=== PATIENT | female | born 1935 | race Caucasian/White ===

== ENCOUNTER 2024-08-04 07:04 | Emergency (ER) | payer MEDICARE, SELFPAY ==
[2024-08-04] VITALS (18 sets, daily range): BP systolic 119–181; BP diastolic 62–72; PULSE 72–93; RESP 12–21; TEMP 36.5; O2SAT 98–100
--- NOTE | ~2024-08-04 | CT_ITS ---
EXAMINATION: CT soft tissue neck w con DATE: 08/04/2024 08:39 INDICATION: Neck mass. TECHNIQUE: Computed tomography (CT) of the neck was performed with 75 mL Omnipaque-350 intravenous co ntrast. Automated exposure control and iterative reconstruction technique were employed. The dose-nubia gth product was 260.11 mGy-cm. COMPARISON: None FINDINGS: There is mild scarring at the lung apices. There is a 3.9 x 3.5 x 4.0 cm mass involving rig ht submandibular gland extending to the skin with eccentric calcifications. There are no pathological ly enlarged lymph nodes. The paranasal sinuses are clear. The mastoid air cells are normal. The orbit s are normal. There is moderate cervical spondylosis. There are benign bone islands in C6 and C7. IMPRESSION: 1. 4.0 cm mass of right submandibular gland extending to the skin. The differential diagnosis include s primary malignancy, benign mixed tumor, and Warthin tumor. Reviewed, dictated and finalized at location [] [employer] MANAGER IMPRESSION: 1. 4.0 cm mass of right submandibular gland extending to the skin. The differen tial diagnosis includes primary malignancy, benign mixed tumor, and Warthin rosalie or.
--- NOTE | 2024-08-04 07:45 | ED.WOUNDLAC ---
HPI - Wound/Laceration General Chief Complaint: Wound/Laceration Stated Complaint: facial bleeding Time Seen by Provider: 08/04/24 07:39 Source: patient, family, EMS and RN notes reviewed Mode of arrival: EMS Limitations: no limitations History of Present Illness HPI narrative: 88-year-old female presents with bleeding from a growth on her chin/neck that she started to notice on June 21. She states it started about the size of her thumb and has continued to grow. she states it is not painful. She notes that it would occasionally bleed before but this morning she woke up and it was bleeding. no known trauma or injury although she states was possible she struck it on something while she was asleep. No fevers or chills. She denies any difficulty breathing. No other mucosal bleeding. Patient denies any medical problems and is not on any medications including no anticoagulation. Related Data Allergies Allergy/AdvReac Type Severity Reaction Status Date / Time No Known Allergies Allergy Verified 08/04/24 07:57 [facility] Past Medical History Medical History (Updated 08/04/24 @ 09:01 by Henny Orona MD) No significant medical problems Social History Social History (Updated 08/04/24 @ 07:57 by Henny Orona MD) Social History: Has at least 2 sons Living arrangements: [facility] Additional living arrangements comments: [facility] Exam Narrative: GENERAL: Well-appearing, well-nourished, and in no acute distress. HEAD: Normocephalic, atraumatic. ENT: Nares clear, no rhinorrhea or epistaxis. NECK: Supple. No carotid bruit. 4 cm x 3 x2 cm lesion located on right neck just inferior to the mandible. it does have a 1 cm x 2 cm ulcerated friable area on the top. there does appear to be angiogenesis/vascularity throughout the mass which is otherwise firm and immobile. CHEST: Speaking in full sentences. No respiratory distress. Lungs clear to auscultation bilaterally without wheezes, crackles, or stridor. HEART: Regular rate and rhythm. . ABDOMEN: Soft, nondistended. EXTREMITIES: Normal range of motion. No lower extremity edema. SKIN: Warm, dry, no rash. NEURO: No focal deficits. Alert and oriented x3. PSYCH: Normal mood and affect. Course Vital Signs Vital signs: Vital Signs Temperature 97.7 F 08/04/24 07:06 Pulse Rate 91 08/04/24 07:06 Respiratory Rate 14 08/04/24 07:06 Blood Pressure 178/67 H 08/04/24 07:06 Pulse Oximetry 100 08/04/24 07:06 Oxygen Delivery Room Air 08/04/24 07:06 Temperature 97.7 F 08/04/24 07:06 Pulse Rate 80 08/04/24 09:45 Respiratory Rate 20 08/04/24 09:45 Blood Pressure 158/70 H 08/04/24 09:02 Pulse Oximetry 99 08/04/24 09:45 Oxygen Delivery Room Air 08/04/24 07:06 MDM - Wound/Laceration MDM Narrative Medical decision making narrative: patient presents with bleeding from a mass that she is noticed on the right side of neck this been growing for the past 6 weeks. In the emergency department she is afebrile with vital signs notable for hypertension. patient states that is not painful. Labs obtained. CT imaging as below. Discussed with clinical technologist Dr. Lopez. he did indicate that he could see this in clinic outpatient and facilitate patient getting a biopsy and/or being referred to [facility] or patient could elect to present there directly. Patient otherwise remains stable. She and her sons are advised on the recommendations/next steps and verify understanding. I did use 1 silver nitrate stick to cauterize some of the surface bleeding although it had been generally well controlled. Dressed with RN with bandage and tegaderm dressing. Differential Diagnosis Differential diagnosis: Likely abscess (considered) and other (tumor - benign or malignant) Lab Data Attestation: I reviewed the patient's lab results. Lab results narrative: Microcytic anemia, thrombocytosis. No leukocytosis. 08/04/24 08:05 08/04/24 08:05 Labs: Lab Results 08/04/24 Range/Units 08:05 WBC 8.2 (4.5-10.0) K/mm3 RBC 4.08 L (4.2-5.4) M/mm3 Hgb 8.3 L (12.0-15.0) g/dL Hct 29.4 L (37.0-47.0) % MCV 72.1 L (80-100) fl MCH 20.3 L (26-34) pg MCHC 28.2 L (32-36) g/dl RDW 17.2 H (11.5-14.5) % Plt Count 453 H (150-375) k/mm3 MPV 9.8 (7.4-10.4) fl Immature Gran % (Auto) 0.1 (0-0.5) % Neut % (Auto) 56.2 (45.5-73.1) % Lymph % (Auto) 29.4 (18.3-44.2) % [place] % (Auto) 11.2 H (2.6-8.5) % Eos % (Auto) 2.4 (0-4.4) % Baso % (Auto) 0.7 (0.2-1.2) % Lymph # (Auto) 2.41 (0.9-3.2) K/mm3 [place] # (Auto) 0.9 H (0.1-0.6) K/mm3 Eos # (Auto) 0.2 (0-0.3) K/mm3 Baso # (Auto) 0.1 (0.0-0.1) K/mm3 Abs Immat Gran (auto) 0.01 (0.00-0.031) K/mm3 Absolute Neuts (auto) 4.6 (1.3-6.7) K/mm3 Absolute Nucleated RBC 0.000 (0.0-0.012) K/mm3 Nucleated RBC % 0.0 (0.0-0.2) % Platelet Estimate Increased (Adequate) Hypochromasia 2+ Tear Drop Cells 1+ Ovalocytes 1+ Schistocytes None seen PT 14.1 (11.1-14.7) Seconds INR 1.1 APTT 27.5 (22.3-36.8) Seconds Sodium 140 (137-145) mmol/L Potassium 3.8 (3.4-5.0) mmol/L Chloride 107 (98-107) mmol/L Carbon Dioxide 25 (22-30) mmol/L Anion Gap 8 (4-12) mmol/L BUN 16 (7-17) mg/dL Creatinine 0.90 (0.7-1.0) mg/dL Estim Creat Clear Calc 27 ml/min Estimated GFR 59 (59 - ) Glucose 90 (65-110) mg/dL Calcium 9.0 (8.4-10.2) mg/dL Total Bilirubin 0.5 (0.2-1.3) mg/dL AST 25 (14-36) U/L ALT 12 (6-35) U/L Alkaline Phosphatase 84 (38-126) U/L Total Protein 7.0 (6.3-8.2) g/dL Albumin 4.0 (3.5-5.1) g/dL Imaging Data Radiologist's impression: Impressions Soft Tissue Neck CT 08/04/24 08:40 IMPRESSION: 1. 4.0 cm mass of right submandibular gland extending to the skin. The differential diagnosis includes primary malignancy, benign mixed tumor, and Warthin tumor. Discharge Plan Discharge Clinical Impression: Mass of right submandibular gland, Microcytic anemia, Thrombocytosis Patient Disposition: NH Half-Way/Asst Living Condition: Stable Instructions: Antibiotic Form, Anemia (ED), Needle Biopsy (DC), Soft Tissue Mass (ED) Additional Instructions: You can follow-up with the ENT/ clinical technologist listed below for additional management and possible biopsy or you can see your primary care physician to see about getting a referral to [facility] given the possibility of malignancy. Keep the area clean warm and dry. return to the emergency department with any new or worsening symptoms. Follow-up/Referrals: Deepak Lopez MD [Physician] - ( Ear, nose, throat) Yony Saldivar MD [Primary Care Provider] - Time of Disposition: 09:43
[2024-08-04 08:14] LABS: Basophils Absolute Auto 0.1 K/mm3 (0.0-0.1); Basophils Percent Auto 0.7 % (0.2-1.2); Eosinophils Absolute Auto 0.2 K/mm3 (0-0.3); Eosinophils Percent Auto 2.4 % (0-4.4); Hematocrit 29.4 % (37.0-47.0); Hemoglobin 8.3 g/dL (12.0-15.0); Immature Granulocyte Absolute 0.01 K/mm3 (0.00-0.031); Immature Granulocyte Percent A 0.1 % (0-0.5); Lymphocytes Absolute Auto 2.41 K/mm3 (0.9-3.2); Lymphocytes Percent Auto 29.4 % (18.3-44.2); Mean Corpuscular HGB Conc 28.2 g/dl (32-36); Mean Corpuscular Hemoglobin 20.3 pg (26-34); Mean Corpuscular Volume 72.1 fl (80-100); Mean Platelet Volume 9.8 fl (7.4-10.4); Monocytes Absolute Auto 0.9 K/mm3 (0.1-0.6); Monocytes Percent Auto 11.2 % (2.6-8.5); Neutrophils Absolute Auto 4.6 K/mm3 (1.3-6.7); Neutrophils Percent Auto 56.2 % (45.5-73.1); Platelet Count Result 453 k/mm3 (150-375); Red Blood Count 4.08 M/mm3 (4.2-5.4); Red Cell Distribution Width 17.2 % (11.5-14.5); White Blood Count 8.2 K/mm3 (4.5-10.0)
[2024-08-04 08:24] LABS: Alanine Aminotransferase 12 U/L (6-35); Alkaline Phosphatase 84 U/L (38-126); Anion Gap 8 mmol/L (4-12); Aspartate Amino Transferase 25 U/L (14-36); Bilirubin,Total 0.5 mg/dL (0.2-1.3); Blood Urea Nitrogen 16 mg/dL (7-17); Carbon Dioxide 25 mmol/L (22-30); Chloride 107 mmol/L (98-107); Estimated CRCL calculation 27 ml/min; Estimated Glomerular Filt Rate 59; Glucose 90 mg/dL (65-110); Potassium 3.8 mmol/L (3.4-5.0); Sodium 140 mmol/L (137-145)
[2024-08-04 08:25] LABS: INR 1.1; Prothrombin Time 14.1 Seconds (11.1-14.7)
[2024-08-04 08:26] LABS: Partial Thromboplastin Time 27.5 Seconds (22.3-36.8)
[2024-08-04 08:47] LABS: Hypochromasia 2+; Ovalocytes 1+; Platelet Estimate Increased (Adequate); Schistocytes None Seen; Tear Drop Cells 1+
--- NOTE | 2024-08-04 09:07 | PC.NURSE ---
Pt resting in NAD. Waiting further POC. Clean gauze applied over mass, no bleeding at this current time. Pt's sons at bedside. Pt offered the ordered tylenol but denies any pain and does not wish to take it at this time.
== END 2024-08-04 10:38 ==
PROVIDERS: Emergency Provider Student in an Organized Health Care Education/Training Program; PCP Family Medicine Adolescent Medicine
DX: K11.9 Disease of salivary gland, unspecified (principal); D50.9 Iron deficiency anemia, unspecified; D75.839 Thrombocytosis, unspecified
CPT/HCPCS: 36415; 70491; 80053; 85025; 85610; 85730; 99284; Q9967